=== PATIENT | male | born 2000 | race Caucasian/White ===

== ENCOUNTER 2025-02-05 12:13 | Emergency (ER) | payer MEDICAID ==
[~2025-02-05] VITALS: Ht 162.6 cm; Wt 61.4 kg
[2025-02-05 12:19] VITALS: TEMP 98
[2025-02-05 12:30] VITALS: BP 128/56; PULSE 68; RESP 16; O2SAT 100
[2025-02-05] MEDS: PERTUSS(ACELL),DIPH,TET/PF 0.5 ML SYRINGE [ADULT] IM. ONE (13:07)
== END 2025-02-05 13:24 | disposition home or self-care (01) ==
LOC: EMS 12:13
DX: S81.852A Open bite, left lower leg, initial encounter (principal); Z23 Encounter for immunization; W54.0XXA Bitten by dog, initial encounter; Y93.89 Activity, other specified; Y92.89 Other specified places as the place of occurrence of the external cause; Y99.8 Other external cause status
CPT/HCPCS: 90471; 90715; 99283